=== PATIENT | male | born 1985 | race Caucasian/White ===

== ENCOUNTER 2018-10-23 17:08 | Emergency (ER) | payer OTHER ==
[~2018-10-23] VITALS: Ht 177.8 cm; Wt 77.1 kg
[2018-10-23] MEDS ORDERED: NAPROSYN500 MG PO (18:48)
[2018-10-23 19:27] VITALS: BP 140/96
== END 2018-10-23 19:29 | disposition home or self-care (01) ==
LOC: ER 17:08
DX: S01.111A Laceration without foreign body of right eyelid and periocular area, initial encounter (principal); S46.911A Strain of unspecified muscle, fascia and tendon at shoulder and upper arm level, right arm, initial encounter; W00.1XXA Fall from stairs and steps due to ice and snow, initial encounter; Y93.89 Activity, other specified; Y92.89 Other specified places as the place of occurrence of the external cause; Y99.8 Other external cause status